=== PATIENT | male | born 1995 | race Caucasian/White ===

== ENCOUNTER → 2018-05-31 06:01 | Day surgery (SDC) | payer BC ==
--- NOTE | 2018-05-12 00:22 | HP ---
CC: Dr. Mojica * HISTORY AND PHYSICAL: DATE OF PLANNED ADMISSION AND SURGERY: 05/31/18 HISTORY OF PRESENT ILLNESS: Mr. Kim is a 23-year-old white male who is admitted with left varicocele and decreased semen parameters for left varicocele repair. Mr. Kim was referred by Dr. Mojica in May 2016 because of left scrotal enlargement. At that time, the work-up showed a left varicocele with some decrease in the volume of the left testis. Semen analysis showed a count of 18 million per cc with 40% motility, but there was elevated viscosity. The semen analysis was repeated a year later and he had a very high count with high viscosity and low motility. The high count was explained on the basis of the high viscosity causing clumping of the sperms. The patient was managed conservatively and another semen analysis was repeated, and it showed a count of 26 million per cc with 50% motility. At that time, the patient was having mild episodes of left scrotal discomfort interfering with his physical activities. Repeat testicular exam showed a further decrease in the volume of the left testis, which was felt to be 30% smaller than the right. Because of the above history and findings, and the concern about potential interference with fertility and because of the mild left scrotal discomfort, patient decided to proceed with left varicocele repair. PAST MEDICAL HISTORY AND SYSTEM REVIEW: Completely negative. He is in excellent health. He has acne of his back and he is on minocycline for it. MEDICATIONS: He is on no other chronic medications. ALLERGIES: He denies any allergies to medications. FAMILY HISTORY: Negative. SOCIAL HISTORY: He is a nonsmoker. PHYSICAL EXAMINATION GENERAL: Pleasant and healthy-looking white male who has normal male sexual characteristics. VITAL SIGNS: Blood pressure 110/70, pulse of 54. LUNGS: Clear. CHEST: He has no gynecomastia. HEART: Regular and rhythmic. No murmurs. ABDOMEN: Abdominal exam is normal. EXTERNAL GENITALIA: He is not circumcised. There is no phimosis or penile lesions. The left testis is about 30% smaller than the right. There is a grade 2 to 3 left varicocele. No inguinal hernias noted. IMPRESSION: Left varicocele with mild left testicular discomfort, decrease in the volume of the left testis, and decreased semen parameters. PLAN: I again discussed the option of continued observation versus proceeding with the varicocele repair. The patient wants to proceed with left varicocele repair. I discussed the operation, the potential complications including 10% incidence of recurrence of the varicocele, a small incidence of hydrocele, infection, hematoma, and testicular atrophy. All his questions were answered. [id number]/[facility] #: [id number] RANDALL
[~2018-05-31 06:01] MED LIST: Acetaminophen TAB* 325 MG ONE; Acetaminophen TAB* 325 MG PO ONE; Buffered Lidocaine 0.9% SYRIN* 5 ML/SYR SYRINGE INTRADERM ONE; Bupivacaine 0.5%* 50 ML VIAL ONE; Dexamethasone IV* 4 MG/ML 1 ML (4 MG) ONE; DiMENhydriNATE IV* 50 MG/ML VIAL IV PUSH PRN; Famotidine IV* 10 MG/ML 2 ML (20 mg) ONE; Gabapentin CAP(*) 300 MG ONE; Gabapentin CAP(*) 300 MG PO ONE; HYDROcodone/ACETAMIN 5-325 MG* 1 TAB PO PRN; Ketorolac INJ* 30 MG/ML 1 ML VIAL ONE; Lactated Ringers 1000 ML Bag* 1,000 ML IV SCH; Lidocaine 2% PF * 5 ML VIAL ONE; Midazolam* 1 MG/ML 2 ML VIAL (2 MG) ONE; Naloxone* 0.4 MG/ML 1 ML VIAL IV PRN; Ondansetron INJ* 2 MG/ML VIAL IV PRN; PROCHLORPERAZINE INJ 5 MG/ML 2 ML VIAL IV PRN; Propofol* 10 MG/ML 20 ML BTL ONE; ROPIVACAINE 5 MG/ML 30 ML BTL (0.5%) ONE; ceFAZolin 2 GM PREMIX in ORs 2 GM/50 ML BAG IVPB ONE; diPHENhydraMINE IV* 50 MG/ML 1 ml VIAL (BENADRYL) IV PRN; fentaNYL* 50 MCG/ML 2 ML VIAL (100 MCG VIAL) IV PRN; fentaNYL* 50 MCG/ML 2 ML VIAL (100 MCG VIAL) ONE
[2018-05-31 10:38] VITALS: BP 114/68
--- NOTE | 2018-05-31 20:55 | OP ---
CC: Dr. Jesse Mojica * DATE OF OPERATION: 05/31/18 - [facility] DATE OF : 89 SURGEON: Dr. Phillip. PHOTOSTAT OPERATOR: Dr. Cline. ANESTHESIOLOGIST: Dr. Adriano Monge. ANESTHESIA: General. PRE-OP DIAGNOSES: 1. Left varicocele. 2. Decreased semen analysis parameters. POST-OP DIAGNOSES: 1. Left varicocele. 2. Decreased semen analysis parameters. OPERATION: Left varicocele repair (subinguinal approach). INDICATIONS FOR PROCEDURE: Mr. Kim is a 23-year-old white male who presented about 2 years ago with left scrotal swelling and was noted to have a left varicocele. At that time, it was minimally symptomatic. There was decreased semen parameters; however, he had high viscosity, which made the count unreliable. The patient was observed and on recent reevaluation, he started having left scrotal discomfort. Repeat semen analysis showed normal viscosity and a count of 17 million and 40% motility. Physical examination again showed grade 2 to 3 left varicocele. Because of the above history and findings, left varicocele repair was advised and accepted. PATHOLOGY: Exam under anesthesia showed the left varicocele to be totally decompressed. There was slight decrease in the volume of the left testis compared to the right. Upon exploration of the spermatic cord, there was a lipoma attached to the cord. The vas deferens and its vessels looked normal. There was 1 large branch of the internal spermatic vein and 2 smaller branches. There were 2 branches of the internal spermatic artery. No hernia was noted. DESCRIPTION OF PROCEDURE: After successful general anesthesia, the patient was placed in the supine position and was prepped and draped for a left inguinal incision. A 2 cm incision was carried just medial to the level of the left external inguinal ring. The incision was deepened through the Tito's fascia. The spermatic cord was identified, was circumferentially dissected and a Brissa clamp was placed underneath it delivering the spermatic cord through the incision. A lipoma was noted attached to the cord. It was dissected and excised. The cremasteric fibers were then opened. The spermatic fascia was opened. The vas deferens and its vessels were identified, carefully dissected, isolated, and a vessel loop applied around them and were isolated and preserved. Using magnification and using Doppler, the arterial and venous branches of the spermatic vessels were identified. The three branches of the internal spermatic veins were circumferentially dissected, ligated with 4-0 Vicryl and divided. The two branches of the internal spermatic artery were identified by visualization and by Doppler and were preserved. Several lymphatic vessels were identified and were preserved. At the completion of the procedure, there were no identifiable branches of the internal spermatic veins. The 2 branches of the internal spermatic artery, the vas deferens and its vessels were all intact. There was very good hemostasis. The spermatic cord was then replaced in its anatomical position. A total of 7 cc of 0.5% Marcaine without epinephrine were used to infiltrate the incision for postoperative analgesia. The incision was enclosed using 4-0 Vicryl for the Tito's fascia and the subcutaneous tissue. The skin was closed using running subcuticular suture of 4-0 chromic. A dressing was applied. The patient tolerated the procedure well and left the operating room in good condition. There was no blood loss. There were no specimens. All the counts were correct. [id number]/[facility] #: [id number] RANDALL
== END | disposition home or self-care (01) ==
LOC: OR 06:01
PROVIDERS: ATTEND Urology
DX: I86.1 Scrotal varices (principal)
CPT/HCPCS: A9270-GY; J0690; J1100; J1885; J2250; J2704; J2795; J3010